=== PATIENT | female | born 1970 | race Caucasian/White ===

== ENCOUNTER → 2016-05-31 | Outpatient (CLI) | payer OTHER ==
[~2016-05-31] MED LIST: IBUP600T26 PO; ISOVUE-370 76% 100ML VIAL (Q9967) As Ordered ONE; LISI5TAB PO; VICO5TAB PO; VITAD1000T PO
--- NOTE | 2016-05-31 18:51 | REP ---
RIGHT ANKLE: HISTORY: Venous insufficiency. Previous ORIF distal tibia. COMPARISON: None. There is a cancellus screw affixing and old healed medial malleolar fracture. Plantar and retrocalcaneal heel spurs are present. There is no evidence of an acute fracture or destructive osseous lesion. IMPRESSION: Chronic changes as described above. Signed by Gerardo Fernandez DO 05/31/2016 07:09 P
--- NOTE | 2016-05-31 18:52 | REP ---
CT ABDOMEN AND PELVIS: REASON FOR EXAM: Venous insufficiency. COMPARISON EXAM: 07/28/2015. CONTRAST UTILIZED: 100 mL Isovue-370. The precontrast enhanced portion of the examination shows hepatic and splenic densities to be within normal limits. There are no nephroliths or choleliths. The lung bases are clear. The post-contrast enhanced portion of the examination shows the liver, gallbladder, spleen, pancreas, adrenal glands, and kidneys to be within normal limits. The abdominal aorta is within normal limits. There are multiple nonenlarged paraaortic lymph nodes of uncertain etiology. Scattered lymph nodes are seen throughout the small bowel mesentery. Some have a borderline short axis size of 1-1.2 cm. When compared to the prior exam some of these appear to have increased in size. There is no free fluid or free air in the abdomen. The bowel loops are within normal limits. CT PELVIS: There are enlarged right inguinal lymph nodes which have increased in size from the prior exam. There is no pelvic side wall adenopathy. The pelvic bowel loops and the mesenteries are within normal limits. Bone window technique through the examination shows the osseous structures to be stable and intact. IMPRESSION: 1. There is mild mesenteric lymphadenopathy of uncertain etiology. This needs to be correlated clinically with appropriate followup. 2. There is right inguinal adenopathy as described above. This appears to have increased from the prior exam and needs to be correlated clinically with appropriate followup. 3. Other findings as described above. Signed by Gerardo Fernandez DO 05/31/2016 07:09 P
== END ==
LOC: M RAD 17:30
PROVIDERS: ATTEND Surgery
DX: I87.2 Venous insufficiency (chronic) (peripheral) (principal); L03.115 Cellulitis of right lower limb; R59.0 Localized enlarged lymph nodes
CPT/HCPCS: 73610; 74178; Q9967

== ENCOUNTER → 2016-06-04 | Outpatient (REF) | payer OTHER ==
[~2016-06-04] MED LIST changes: -ISOVUE-370 76% 100ML VIAL (Q9967) As Ordered ONE
== END ==
LOC: M LAB REF 16:26
PROVIDERS: ATTEND Nurse Practitioner Adult Health
DX: E61.1 Iron deficiency (principal)

== ENCOUNTER → 2016-06-29 | Outpatient (RCR) | payer OTHER | LOC: M PT 06-01 14:09 | PROVIDERS: ATTEND Surgery | DX: Z51.89 Encounter for other specified aftercare (principal); I87.2 Venous insufficiency (chronic) (peripheral); L03.115 Cellulitis of right lower limb ==

== ENCOUNTER 2016-07-11 13:30 | Outpatient (RCR) | payer OTHER | END 2016-07-29 | LOC: M PT 13:30 | PROVIDERS: ATTEND Surgery | DX: Z51.89 Encounter for other specified aftercare (principal); I87.2 Venous insufficiency (chronic) (peripheral); L03.115 Cellulitis of right lower limb ==

== ENCOUNTER → 2016-07-19 | Outpatient (CLI) | payer OTHER ==
--- NOTE | 2016-07-19 12:21 | REP ---
Duplex extremity venous ultrasound: Right lower extremity. History: Question DVT right leg pain. Findings: The deep veins are anechoic and fully compressible from the groin to the popliteal fossa in the right lower extremity. Color flow imaging is homogeneous. Spectral Doppler interrogation demonstrates intact respiratory variation in flow and normal manual augmentation of flow. There is no evidence of deep vein thrombosis. The right groin lymph node is seen measuring 1.6 x 1.0 x 1.4 cm. This has an intact hilar echogenic architecture. Compatible with benign lymph node. Impression: Negative right lower extremity duplex venous ultrasound. No evidence of deep vein thrombosis. Signed by Tk Hare MD 07/19/2016 12:13 P
== END ==
LOC: M RAD 11:39
PROVIDERS: ATTEND Physician Assistant
DX: I82.401 Acute embolism and thrombosis of unspecified deep veins of right lower extremity (principal)

== ENCOUNTER 2016-11-26 13:47 | Outpatient (RCR) | payer OTHER | END 2016-11-29 | LOC: M PT 13:47 | PROVIDERS: ATTEND Surgery | DX: Z51.89 Encounter for other specified aftercare (principal); I87.2 Venous insufficiency (chronic) (peripheral) ==

== ENCOUNTER 2016-12-19 13:00 | Outpatient (RCR) | payer OTHER | END 2016-12-29 | LOC: M PT 13:00 | PROVIDERS: ATTEND Surgery | DX: Z51.89 Encounter for other specified aftercare (principal); R59.0 Localized enlarged lymph nodes ==

== ENCOUNTER 2017-01-28 15:00 | Outpatient (RCR) | payer OTHER | END 2017-01-29 | LOC: M PT 15:00 | PROVIDERS: ATTEND Surgery | DX: Z51.89 Encounter for other specified aftercare (principal) ==

== ENCOUNTER → 2017-05-29 | Outpatient (RCR) | payer OTHER | LOC: M PT 13:11 | DX: Z51.89 Encounter for other specified aftercare (principal); I89.0 Lymphedema, not elsewhere classified ==

== ENCOUNTER 2017-06-17 14:58 | Outpatient (RCR) | payer OTHER | END 2017-06-29 | LOC: M PT 14:58 | DX: Z51.89 Encounter for other specified aftercare (principal); I89.0 Lymphedema, not elsewhere classified ==

== ENCOUNTER 2017-07-01 16:03 | Outpatient (RCR) | payer OTHER | END 2017-07-29 | LOC: M PT 16:03 | DX: Z51.89 Encounter for other specified aftercare (principal); I89.0 Lymphedema, not elsewhere classified ==

== ENCOUNTER → 2017-12-19 | Outpatient (REF) | payer OTHER | LOC: M LAB REF 16:59 | DX: M54.5 Low back pain (principal) ==

== ENCOUNTER → 2018-05-29 | Outpatient (RCR) | payer OTHER, SELFPAY | LOC: M PT 05-20 15:02 | PROVIDERS: ATTEND Surgery | DX: I88.9 Nonspecific lymphadenitis, unspecified (principal) ==

== ENCOUNTER 2018-06-25 13:30 | Outpatient (RCR) | payer OTHER | END 2018-06-29 | LOC: M PT 13:30 | PROVIDERS: ATTEND Surgery | DX: I89.0 Lymphedema, not elsewhere classified (principal) ==

== ENCOUNTER 2018-06-30 16:05 | Outpatient (RCR) | payer OTHER | END 2018-07-29 | LOC: M PT 16:05 | PROVIDERS: ATTEND Surgery | DX: I89.0 Lymphedema, not elsewhere classified (principal) ==

== ENCOUNTER 2018-08-24 20:29 | Emergency (ER) | payer OTHER ==
[~2018-08-24] VITALS: Ht 177.8 cm; Wt 136.4 kg
[2018-08-24] MEDS ORDERED: AMLO5TAB6 PO (20:53)
[2018-08-24] MEDS ORDERED: BISO10TA6 PO (20:53)
[2018-08-24] MEDS ORDERED: FURO20TA2 PO (20:53)
[2018-08-24] MEDS ORDERED: CETI10CA13 PO (20:53)
[2018-08-24] MEDS ORDERED: TRAM50TA2 PO (20:53)
[2018-08-24] MEDS ORDERED: LISI-538 PO (20:53)
[2018-08-24] MEDS ORDERED: ACET1TAB55 PO (20:53)
[2018-08-24 21:49] LABS: BASO % 0.5 % (0.0-1.0); EOS # 0.2 10^3/uL (0.0-0.50); EOS % 2.2 % (0.0-3.0); HEMATOCRIT 35.6 % (36.0-47.0); HEMOGLOBIN 11.7 g/dl (12.0-15.5); LYMPH # 2.6 10^3/uL (1.5-4.5); LYMPH % 32.7 % (24.0-44.0); MEAN CORPUSCULAR HEMOGLOBIN 29.8 pg (27.0-33.0); MEAN CORPUSCULAR HGB CONC 32.9 g/dl (32.0-36.5); MEAN CORPUSCULAR VOLUME 90.8 fl (80.0-96.0); MONO # 0.7 10^3/uL (0.0-0.8); MONO % 8.7 % (0.0-5.0); NEUTROPHILS # 4.5 10^3/uL (1.8-7.7); NEUTROPHILS % 55.5 % (36.0-66.0); PLATELET COUNT, AUTOMATED 237 10^3/uL (150-450); RED BLOOD COUNT 3.92 10^6/uL (4.00-5.40); WHITE BLOOD COUNT 8.1 10^3/uL (4.0-10.0)
[2018-08-24 22:44] VITALS: BP 162/97
== END 2018-08-24 22:45 | disposition home or self-care (01) ==
LOC: M ED 20:29
DX: I83.891 Varicose veins of right lower extremity with other complications (principal); I50.9 Heart failure, unspecified; I10 Essential (primary) hypertension; I89.0 Lymphedema, not elsewhere classified; J30.2 Other seasonal allergic rhinitis; Z79.899 Other long term (current) drug therapy

== ENCOUNTER 2020-02-23 11:46 | Outpatient (RCR) | payer OTHER ==
[~2020-02-23 11:46] MED LIST changes: +ACET1TAB55 PO; +AMLO1TAB24 PO; +BISO10TA14 PO; +CETI10CA13 PO; +FURO20TA2 PO; +LISI-538 PO; +TRAM50TA2 PO
== END 2020-02-29 ==
LOC: M PT 11:46
PROVIDERS: ATTEND Nurse Practitioner Adult Health
DX: M54.5 Low back pain (principal)

== ENCOUNTER 2020-03-29 10:45 | Outpatient (RCR) | payer OTHER | END 2020-03-31 | LOC: M PT 10:45 | PROVIDERS: ATTEND Nurse Practitioner Adult Health | DX: M54.5 Low back pain (principal) ==

== ENCOUNTER 2020-04-20 08:32 | Emergency (ER) | payer OTHER ==
[~2020-04-20] VITALS: Ht 177.8 cm; Wt 163.6 kg
[~2020-04-20 08:32] MED LIST changes: -LISI-538 PO; +LISI20TA33 PO
--- OUTSIDE RECORDS SUMMARY | 2020-04-20 08:39 | CCD | Continuity of Care Document ---
Author Author Elyse Meeks Organization Unknown Address [address] [facility] [address] [place] [address] Phone [phone] Care Team Providers Care Wheel Cleaner Name Role Phone Sunitha Meeks AUTM [phone] Problems Description No Information Available Social History Type Date Description Comments Sex Unknown ETOH Use Denies alcohol use Tobacco Use Start: Unknown Patient has never smoked Allergies, Adverse Reactions, Alerts Active Allergies Reaction Severity Comments Date Bee Sting 07/07/2014 Medications Active Medications SIG Qnty Indications Ordering Provide r Date Torsemide 20mg Tablets 1 by mouth every day 30tabs OTILIA Garnica 03/22/2020 Bariatric Rollator/Extra Wide/400LB [place] city/Heavy Duty Misc use as directed, dispense #1 Dx: M159, 187.2, 189, M54.5 1units Sunitha Meeks, OTILIA 09/08/2019 Bisoprolol Fumarate 10mg Tablets Take One Tablet By Mouth Every Day 90tabs LEX Baker JR 09/02/2018 Acetaminophen Extra Strength 500mg Tablets 2 by mouth three times a day for pain prn ASIM Christianson 09/25/2017 Tramadol HCL 50mg Tablets 1 four times a day as needed 120tabs OTILIA Garnica 05/20/2017 Amlodipine Besylate 5mg Tablets take one tablet by mouth every day 90tabs Sunitha Meeks, OTILIA 0 05/20/2017 Cyclobenzaprine HCL 10mg Tablets take one tablet by mouth three times a day as needed 60tabs OTILIA Hanks 04/29/2017 Vitamin D3 Maximum Strength 5000Unit Capsules every day OTILIA Garnica 017 Azelastine HCL (Nasal) 0.15% Solut ion 1 spray in each nostril daily 30ml J30.9 Sebastián Cheney 05/22/2016 Lisinopril 20mg Tablets take 1 tablet by mouth once a day 90tabs Sunitha Meeks, OTILIA 07/26/2015 Benadryl 25mg Capsules as needed allergies Sunitha Meeks, OTILIA 07/07/2014 Multi For Her 50+ Capsules 1 by mouth every day 30caps Sunitha Meeks, OTILIA 07/07/2014 Immunizations CPT Code Status Date Vaccine Lot # [id number] Refused 01/07/2019 Influenza Vaccin e Quadrivalent Preser/Antibiotic Free Im Use Vital Signs Date Vital Result Comment 03/22/2020 11:17am BP Systolic 156 mmHg BP Diastolic 100 mmHg Heart Rate 75 /min Height 70 inches 5'10" Weight 367.00 lb O2 % BldC Oximetry 99 % BMI (Body Mass Index) 52.7 kg/m2 12/23/2019 10:20am BP Systolic 132 mmHg BP Diastolic 92 mmHg Heart Rate 76 /min Height 70 inches 5'10" Weight 365.00 lb O2 % BldC Oximetry 98 % BMI (Body Mass Index) 52.4 kg/m2 Results Test Acquired Date Facility Test Result H/L Range Note Complete Blood Count 12/23/2019 [facility] Data Analyst Etl Developer: [place] [address] [phone] WBC 6.3 x10*3/UL 4.1 - 10.9 RBC 4.72 x10*6/UL 4.20 - 6.30 Hemoglobin 13.7 g/dL 12.0 - 18.0 Hematocrit 40.4 % 37.0 - 51.0 MCV 85.5 fL 80.0 - 97.0 MCH 29.0 pg 26.0 - 32.0 MCHC 34.0 g/dL 31.0 - 38.0 RDW 13.0 % 11.6 - 13.7 PLT 274 x10*3/UL 140 - 440 MPV 8.2 FL 7.8 - 11.0 Lymph % 27.4 % 10.0 - 58.5 Mid % 7.8 % 1.7 - 9.3 Neut % 64.8 % 37.0 - 92.0 Lymph # 1.7 x10*3/UL 0.6 - 4.1 Mid # 0.5 x10*3/UL 0.1 - 0.6 Neut # 4.1 x10*3/UL 2.0 - 7.8 Comprehensive Chem Profile 12/23/2019 [facility] [place] Data Analyst Etl Developer: Dr Aba Williamson [place], [place] [id number] [phone] Glucose 107 mg/dL High 74 - 99 1 BUN 23 mg/dL High 7 - 18 Creatinine 0.9 mg/dL 0.6 - 1.3 Sodium 138 mEq/L 136 - 145 Potassium 4.3 mEq/L 3.5 - 5.1 Chloride 101 mEq/L 98 - 107 Carbon Dioxide 26 mEq/L 21 - 32 Calcium 9.0 mg/dL 8.5 - 10.1 Alk. Phosphatase 66 mg/dL 46 - 116 Total Bilirubin 0.6 mg/dL 0.2 - 1.0 Ast (Sgot) 33 U/L 15 - 37 Alt (SGPT) 57 U/L 12 - 78 Albumin 3.8 g/dL 3.4 - 5.0 Total Protein 8.1 g/dL 6.4 - 8.2 A/G Ratio 0.88 CALC Low 1.00 - 1.90 GFR >= 60 mL/min >60 GFR >= 60 mL/min >60 2 Lipid Profile 12/23/2019 [facility] [place] Data Analyst Etl Developer: Dr Aba Williamson [place], [place] [id number] [phone] Cholesterol 237 mg/dL High 131 - 200 Triglycerides 164 mg/dL High 30 - 150 HDL Cholesterol 59 mg/dL 35 - 60 LDL (Calculated) 145 CALC 50 - 159 1 100-125 mg/dL PRE-DIABET ES/FASTING >126 mg/dL DIABETES/FASTING 2 CHRONIC KIDNEY DISEASE STAGI NG PER NKF STAGE I & II GFR >= 60 NORMAL TO MILDLY DECREASED STAGE III GFR 30-59 MODERATELY DECREASED STAGE IV GFR 15-29 SEVERELY DECREASED STAGE V GFR <15 VERY LITTLE GFR LEFT ESRD GFR <15 ON BANDSAW OPERATOR Procedures Date Code Description Status 08/26/2014 [id number] Mammogram Completed Medical Devices Description No Information Available Encounters Type Date Location Provider Dx Diagnosis Office Visit 12/23/2019 10:15a [facility], ANP I89.0 Lymphedema, not elsewhere classified M54.5 Low back pain I87.2 Venous insufficiency (chroni c) (peripheral) I10 Essential (primary) hyperten cinthia M15.9 Polyosteoarthritis, unspecif ied E66.01 Morbid (severe) obesity due to excess calories Z68.43 Body mass index (BMI) 50.0-5 9.9, adult Assessments Date Code Description Provider 12/23/2019 I89.0 Lymphedema, not elsewhere classi fied Sunitha Meeks, ANP 12/23/2019 M54.5 Low back pain Sunitha Meeks, ANP 12/23/2019 I87.2 Venous insufficiency (chronic) ( peripheral) Sunitha Meeks, OTILIA 12/23/2019 I10 Essential (primary) hypertension Sunitha Meeks, ANP 12/23/2019 M15.9 Polyosteoarthritis, unspecified Sunitha Meeks, OTILIA 12/23/2019 E66.01 Morbid (severe) obesity due to e xcess calories Sunitha Meeks, OTILIA 12/23/2019 Z68.43 Body mass index (BMI) 50.0-59.9, adult Sunitha Meeks, OTILIA Plan of Treatment 12/23/2019 - Sunitha Meeks, OTILIA* I89.0 Lymphedema, not elsewhere classified * M54.5 Low back pain * I87.2 Venous insufficiency (chronic) (peripheral) * I10 Essential (primary) hypertension * M15.9 Polyosteoarthritis, unspecified * E66.01 Morbid (severe) obesity due to excess calories * Z68.43 Body mass index (BMI) 50.0-59.9, adult * All * Comments:* I've give her a note to be out of work for state disability. She's going to meet with her real estate lawyer for permanent Social Security Disability, which I think is very appropriate. Functional Status Description No Information Available Mental Status Description No Information Available Referrals Description No Information Available
--- OUTSIDE RECORDS SUMMARY | 2020-04-20 08:39 | CCD ---
Continuity of Care Document (CCD) Created on: 03/29/2020 Elyse Nguyen External Reference #: [id number] : [id number] Sex: Female Author Author Elyse Meeks Organization Unknown Address [address] [facility] [address] [place] [address] Phone [phone] Care Team Providers Care Technical Sales Support Specialist Name Role Phone Sunitha Meesk ANP AUTM [phone] [facility] Physical Thera AUTM [phone] Problems Description No Information Available Social History Type Date Description Comments Sex Unknown ETOH Use Denies alcohol use Tobacco Use Start: Unknown Patient has never smoked Allergies, Adverse Reactions, Alerts Active Allergies Reaction Severity Comments Date Bee Sting 07/07/2014 Medications Active Medications SIG Qnty Indications Ordering Provide r Date Torsemide 20mg Tablets 1 by mouth every day 30tabs Sunitha Meeks, OTILIA 03/22/2020 [facility]ric Roll[facility]Extra Wide/400[facility] Misc use as directed, dispense [...] CPT Code Status Date Vaccine Lot # [id number] Refused 01/07/2019 Influenza Vaccin e Quadrivalent Preser/Antibiotic [...] H/L Range Note Complete Blood Count 12/23/2019 [facility] Air Traffic Systems Technician: [place] [address] [phone] WBC 6.3 x10*3/UL 4.1 - 10.9 RBC [...] 2.0 - 7.8 Comprehensive Chem Profile 12/23/2019 [facility] Air Traffic Systems Technician: Dr Aba Williamson [place], [place] [id number] [phone] Glucose 107 mg/dL High 74 - 99 [...] 60 mL/min >60 2 Lipid Profile 12/23/2019 [facility] , Air Traffic Systems Technician: Dr Aba Williamson [place], [place] [id number] [phone] Cholesterol 237 mg/dL High 131 - 200 [...] LITTLE GFR LEFT ESRD GFR <15 ON DEMAND PLANNER Procedures Date Code Description Status 08/26/2014 [id number] Mammogram Completed Medical Devices Description No Information Available Encounters Type Date Location Provider Dx Diagnosis Office Visit 03/22/2020 11:00a [facility] Sunitha Meeks, ANP I89.0 Lymphedema, not elsewhere classified M54.5 Low back pain I87.2 Venous insufficiency (chroni c) (peripheral) I10 Essential (primary) hyperten cinthia M15.9 Polyosteoarthritis, unspecif ied E66.01 Morbid (severe) obesity due to excess calories Z68.43 Body mass index [BMI] 50.0-5 9.9, adult Office Visit 12/23/2019 10:15a [facility] Sunitha Meeks, ANP I89.0 Lymphedema, not elsewhere classified M54.5 Low back pain I87.2 Venous insufficiency (chroni c) (peripheral) I10 Essential (primary) hyperten cinthia M15.9 Polyosteoarthritis, unspecif ied E66.01 Morbid (severe) obesity due to excess calories Z68.43 Body mass index (BMI) 50.0-5 9.9, adult Assessments Date Code Description Provider 03/22/2020 I89.0 Lymphedema, not elsewhere classi fied Sunitha Meeks, ANP 03/22/2020 M54.5 Low back pain Sunitha Meeks, ANP 03/22/2020 I87.2 Venous insufficiency (chronic) ( peripheral) Sunitha Meeks, ANP 03/22/2020 I10 Essential (primary) hypertension Sunitha Meeks, ANP 03/22/2020 M15.9 Polyosteoarthritis, unspecified Sunitha Meeks, ANP 03/22/2020 E66.01 Morbid (severe) obesity due to e xcess calories Sunitha Meeks, ANP 03/22/2020 Z68.43 Body mass index [BMI] 50.0-59.9, adult Sunitha Meeks, ANP 12/23/2019 I89.0 Lymphedema, not elsewhere classi fied Sunitha Meeks, ANP 12/23/2019 M54.5 Low back pain Sunitha Meeks, ANP 12/23/2019 I87.2 Venous insufficiency (chronic) ( peripheral) Sunitha Meeks, ANP 12/23/2019 I10 Essential (primary) hypertension Sunitha Meeks, ANP 12/23/2019 M15.9 Polyosteoarthritis, unspecified Suntiha Meeks, OTILIA 12/23/2019 E66.01 Morbid (severe) obesity due to e xcess calories OTILIA Garnica 12/23/2019 Z68.43 Body mass index (BMI) 50.0-59.9, adult OTILIA Garnica Plan of Treatment Future Appointment(s):* 04/19/2020 10:40 am - OTILIA Garnica at [facility] 03/22/2020 - OTILIA Garnica* I89.0 Lymphedema, not elsewhere classified * M54.5 Low back pain * I87.2 Venous insufficiency (chronic) (peripheral) * I10 Essential (primary) hypertension * M15.9 Polyosteoarthritis, unspecified * E66.01 Morbid (severe) obesity due to excess calories * Z68.43 Body mass index [BMI] 50.0-59.9, adult * All * New Medication:* Torsemide 20 mg - 1 by mouth every day Functional Status Description No Information Available Mental Status Description No Information Available Referrals Description No Information Available
--- OUTSIDE RECORDS SUMMARY | 2020-04-20 08:40 | CCD ---
Author Author [facility] Organization [facility] Address Unknown Phone Unavailable Care Team Providers Care Solar Sales Advisor Name Role Phone Ger, Susan STRATEGIC INTELLIGENCE OFFICER Unavailable Unavailable Ger, Susan STRATEGIC INTELLIGENCE OFFICER Unavailable Unavailable Ger, Susan STRATEGIC INTELLIGENCE OFFICER Unavailable Unavailable Ger, Susan STRATEGIC INTELLIGENCE OFFICER Unavailable Unavailable Ger, Susan STRATEGIC INTELLIGENCE OFFICER Unavailable Unavailable Ger, Susan STRATEGIC INTELLIGENCE OFFICER Unavailable Unavailable Ger, Susan STRATEGIC INTELLIGENCE OFFICER Unavailable Unavailable Ger, Susan STRATEGIC INTELLIGENCE OFFICER Unavailable Unavailable Ger, Susan STRATEGIC INTELLIGENCE OFFICER Unavailable Unavailable Ger, Susan STRATEGIC INTELLIGENCE OFFICER Unavailable Unavailable Ger, Susan STRATEGIC INTELLIGENCE OFFICER Unavailable Unavailable Ger, Susan STRATEGIC INTELLIGENCE OFFICER Unavailable Unavailable Ger, Susan STRATEGIC INTELLIGENCE OFFICER Unavailable Unavailable Ger, Susan STRATEGIC INTELLIGENCE OFFICER Unavailable Unavailable Ger, Susan STRATEGIC INTELLIGENCE OFFICER Unavailable Unavailable Ger, Susan STRATEGIC INTELLIGENCE OFFICER Unavailable Unavailable Ger, Susan STRATEGIC INTELLIGENCE OFFICER Unavailable Unavailable Ger, Susan STRATEGIC INTELLIGENCE OFFICER Unavailable Unavailable Ger, Susan STRATEGIC INTELLIGENCE OFFICER Unavailable Unavailable Ger, Susan STRATEGIC INTELLIGENCE OFFICER Unavailable Unavailable Ger, Susan STRATEGIC INTELLIGENCE OFFICER Unavailable Unavailable Ger, Susan STRATEGIC INTELLIGENCE OFFICER Unavailable Unavailable Ger, Susan STRATEGIC INTELLIGENCE OFFICER Unavailable Unavailable Ger, Susan STRATEGIC INTELLIGENCE OFFICER Unavailable Unavailable Ger, Susan STRATEGIC INTELLIGENCE OFFICER Unavailable Unavailable Ger, Susan STRATEGIC INTELLIGENCE OFFICER Unavailable Unavailable Ger, Susan STRATEGIC INTELLIGENCE OFFICER Unavailable Unavailable Ant BAUER MD Unavailable Unavailable Ant BAUER MD Unavailable Unavailable Ant BAUER MD Unavailable Unavailable Ant BAUER MD Unavailable Unavailable Ant BAUER MD Unavailable Unavailable Ant BAUER MD Unavailable Unavailable Ant BAUER MD Unavailable Unavailable Ant BAUER MD Unavailable Unavailable Ant BAUER MD Unavailable Unavailable Ant BAUER MD Unavailable Unavailable Ant BAUER MD Unavailable Unavailable Ant BAUER MD Unavailable Unavailable Ant BAUER MD Unavailable Unavailable Ant BAUER MD Unavailable Unavailable Ant BAUER MD Unavailable Unavailable Ant BAUER MD Unavailable Unavailable Ant BAUER MD Unavailable Unavailable Ant BAUER MD Unavailable Unavailable Ant BAUER MD Unavailable Unavailable Ant BAUER MD Unavailable Unavailable Ant BAUER MD Unavailable Unavailable Ant BAUER MD Unavailable Unavailable Ant BAUER MD Unavailable Unavailable Ant BAUER MD Unavailable Unavailable Ant BAUER MD Unavailable Unavailable Ant BAUER MD Unavailable Unavailable Ant BAUER MD Unavailable Unavailable Ant BAUER MD Unavailable Unavailable Ant BAUER MD Unavailable Unavailable Ant BAUER MD Unavailable Unavailable Ant BAUER MD Unavailable Unavailable Ant BAUER MD Unavailable Unavailable Ant BAUER MD Unavailable Unavailable Ant BAUER MD Unavailable Unavailable Ant BAUER MD Unavailable Unavailable Ant BAUER MD Unavailable Unavailable Ant BAUER MD Unavailable Unavailable Ant BAUER MD Unavailable Unavailable Ant BAUER MD Unavailable Unavailable Ant BAUER MD Unavailable Unavailable Ant BAUER MD Unavailable Unavailable Ant BAUER MD Unavailable Unavailable Ant BAUER MD Unavailable Unavailable Ant BAUER MD Unavailable Unavailable Ant BAUER MD Unavailable Unavailable Ant BAUER MD Unavailable Unavailable Ant BAUER MD Unavailable Unavailable Ant BAUER MD Unavailable Unavailable Ant BAUER MD Unavailable Unavailable Ant BAUER MD Unavailable Unavailable Ant BAUER MD Unavailable Unavailable Ant BAUER MD Unavailable Unavailable Ant BAUER MD Unavailable Unavailable Ant BAUER MD Unavailable Unavailable Ant BAUER MD Unavailable Unavailable Ant BAUER MD Unavailable Unavailable Ant BAUER MD Unavailable Unavailable Ant BAUER MD Unavailable Unavailable Ant BAUER MD Unavailable Unavailable Ant BAUER MD Unavailable Unavailable Ant BAUER MD Unavailable Unavailable Ant BAUER MD Unavailable Unavailable Ant BAUER MD Unavailable Unavailable Ant BAUER MD Unavailable Unavailable Ant BAUER MD Unavailable Unavailable Ant BAUER MD Unavailable Unavailable Ant BAUER MD Unavailable Unavailable Ant BAUER MD Unavailable Unavailable Ant BAUER MD Unavailable Unavailable Ant BAUER MD Unavailable Unavailable Ant BAUER MD Unavailable Unavailable Ant BAUER MD Unavailable Unavailable Ant BAUER MD Unavailable Unavailable Ant BAUER MD Unavailable Unavailable Ant BAUER MD Unavailable Unavailable Ant BAUER MD Unavailable Unavailable Ant BAUER MD Unavailable Unavailable Ant BAUER MD Unavailable Unavailable Ant BAUER MD Unavailable Unavailable Ant BAUER MD Unavailable Unavailable Ant BAUER MD Unavailable Unavailable Ant BAUER MD Unavailable Unavailable Ant BAUER MD Unavailable Unavailable Ant BAUER MD Unavailable Unavailable Ant BAUER MD Unavailable Unavailable Ant BAUER MD Unavailable Unavailable Ant BAUER MD Unavailable Unavailable Ant BAUER MD Unavailable Unavailable Ant BAUER MD Unavailable Unavailable Ant BAUER MD Unavailable Unavailable Ant BAUER MD Unavailable Unavailable Ant BAUER MD Unavailable Unavailable Ant BAUER MD Unavailable Unavailable Ant BAUER MD Unavailable Unavailable Ant BAUER MD Unavailable Unavailable Ant BAUER MD Unavailable Unavailable Ant BAUER MD Unavailable Unavailable Ant BAUER MD Unavailable Unavailable Ant BAUER MD Unavailable Unavailable Ant BAUER MD Unavailable Unavailable Ant BAUER MD Unavailable Unavailable Ant BAUER MD Unavailable Unavailable Ant BAUER MD Unavailable Unavailable Ant BAUER MD Unavailable Unavailable Ant BAUER MD Unavailable Unavailable Ant BAUER MD Unavailable Unavailable Ant BAUER MD Unavailable Unavailable Ant BAUER MD Unavailable Unavailable Ant BAUER MD Unavailable Unavailable Ant BAUER MD Unavailable Unavailable Ant BAUER MD Unavailable Unavailable Ant BAUER MD Unavailable Unavailable Ant BAUER MD Unavailable Unavailable nAt BAUER MD Unavailable Unavailable Ant BAUER MD Unavailable Unavailable Ant BAUER MD Unavailable Unavailable Ant BAUER MD Unavailable Unavailable Ant BAUER MD Unavailable Unavailable Ant BAUER MD Unavailable Unavailable Ant BAUER MD Unavailable Unavailable Ant BAUER MD Unavailable Unavailable Ant BAUER MD Unavailable Unavailable Ant BAUER MD Unavailable Unavailable Ant BAUER MD Unavailable Unavailable Ant BAUER MD Unavailable Unavailable Ant BAUER MD Unavailable Unavailable Ant BAUER MD Unavailable Unavailable Ant BAUER MD Unavailable Unavailable BRODY, J Sunitha ANP Unavailable Unavailable BRODY, J Sunitha ANP Unavailable Unavailable BRODY, J Sunitha ANP Unavailable Unavailable BRODY, J Sunitha ANP Unavailable Unavailable BRODY, J Sunitha ANP Unavailable Unavailable BRODY, J Sunitha ANP Unavailable Unavailable BRODY, J Sunitha ANP Unavailable Unavailable BRODY, J Sunitha ANP Unavailable Unavailable BRODY, J Sunitha ANP Unavailable Unavailable BRODY, J Sunitha ANP Unavailable Unavailable BRODY, J Sunitha ANP Unavailable Unavailable BRODY, J Sunitha ANP Unavailable Unavailable BRODY, J Sunitha ANP Unavailable Unavailable BRODY, J Snuitha ANP Unavailable Unavailable BRODY, J Sunitha ANP Unavailable Unavailable BRODY, J Sunitha ANP Unavailable Unavailable BRODY, J Sunitha ANP Unavailable Unavailable BRODY, J Sunitha ANP Unavailable Unavailable BRODY, J Sunitha ANP Unavailable Unavailable BRODY, J Sunitha ANP Unavailable Unavailable BRODY, J Sunitha ANP Unavailable Unavailable BRODY, J Sunitha ANP Unavailable Unavailable BRODY, J Sunitha ANP Unavailable Unavailable BRODY, J Sunitha ANP Unavailable Unavailable BRODY, J Sunitha ANP Unavailable Unavailable BRODY, J Sunitha ANP Unavailable Unavailable BRODY, J Sunitha ANP Unavailable Unavailable BRODY, J Sunitha ANP Unavailable Unavailable BRODY, J Sunitha ANP Unavailable Unavailable BRODY, J Sunitha ANP Unavailable Unavailable BRODY, J Sunitha ANP Unavailable Unavailable BRODY, J Sunitha ANP Unavailable Unavailable BRODY, J Sunitha ANP Unavailable Unavailable BRODY, J Sunitha ANP Unavailable Unavailable BRODY, J Sunitha ANP Unavailable Unavailable BRODY, J Sunitha ANP Unavailable Unavailable BRODY, J Sunitha ANP Unavailable Unavailable BRODY, J Sunitha ANP Unavailable Unavailable BRODY, J Sunitha ANP Unavailable Unavailable BRODY, J Sunitha ANP Unavailable Unavailable BRODY, J Sunitha ANP Unavailable Unavailable BRODY, J Sunitha ANP Unavailable Unavailable BRODY, J Sunitha ANP Unavailable Unavailable BRODY, J Sunitha ANP Unavailable Unavailable BRODY, J Sunitha ANP Unavailable Unavailable BRODY, J Sunitha ANP Unavailable Unavailable BRODY, J Sunitha ANP Unavailable Unavailable BRODY, J Sunitha ANP Unavailable Unavailable BRODY, J Sunitha ANP Unavailable Unavailable BRODY, J Sunitha ANP Unavailable Unavailable BRODY, J Sunitha ANP Unavailable Unavailable BRODY, J Sunitha ANP Unavailable Unavailable BRODY, J Sunitha ANP Unavailable Unavailable BRODY, J Sunitha ANP Unavailable Unavailable BRODY, J Sunitha ANP Unavailable Unavailable BRODY, J Sunitha ANP Unavailable Unavailable BRODY, J Sunitha ANP Unavailable Unavailable BRODY, J Sunitha ANP Unavailable Unavailable BRODY, J Sunitha ANP Unavailable Unavailable BRODY, J Sunitha ANP Unavailable Unavailable BRODY, J Sunitha ANP Unavailable Unavailable BRODY, J Sunitha ANP Unavailable Unavailable BRODY, J Sunitha ANP Unavailable Unavailable BRODY, J Sunitha ANP Unavailable Unavailable BRODY, J Sunitha ANP Unavailable Unavailable BRODY, J Sunitha ANP Unavailable Unavailable Re-disclosure Warning The records that you are about to access may contain information from federally-assisted alcohol or drug abuse programs. If such information is present, then the following federally mandated warning applies: This information has been disclosed to you from records protected by federal confidentiality rules (42 CFR part 2). The federal rules prohibit you from making any further disclosure of this information unless further disclosure is expressly permitted by the written consent of the person to whom it pertains or as otherwise permitted by 42 CFR part 2. A general authorization for the release of medical or other information is NOT sufficient for this purpose. The Federal rules restrict any use of the information to criminally investigate or prosecute any alcohol or drug abuse patient.The records that you are about to access may contain highly sensitive health information, the redisclosure of which is protected by Article 27-F of the [facility] Public Health law. If you continue you may have access to information: Regarding HIV / AIDS; Provided by facilities licensed or operated by the [facility] Office of Mental Health; or Provided by the [facility] Office for People With Developmental Disabilities. If such information is present, then the following [facility] mandated warning applies: This information has been disclosed to you from confidential records which are protected by state law. State law prohibits you from making any further disclosure of this information without the specific written consent of the person to whom it pertains, or as otherwise permitted by law. Any unauthorized further disclosure in violation of state law may result in a fine or group home sentence or both. A general authorization for the release of medical or other information is NOT sufficient authorization for further disc losure. Family History Family Member Name Family Member Gender Family Member Status Date o f Status Description Data Source(s) Unknown Male Problem [facility] ([facility] ) Unknown Female Problem [facility] ([facility]) Unknown Unknown Problem [facility] father Encounters Encounter Providers Location Date Indications Data Source(s ) Outpatient Attender: Sunitha Russell 10:00:00 AM EST [facility] ([facility] ) Outpatient Attender: Sunitha Russell 10:15:00 AM EDT [facility] ([facility] ) Outpatient Attender: LENNY BAUER MD 12/22/2019 11:39: 00 AM [facility] Outpatient Attender: LENNY BAUER MD 10/20/2019 12:00: 00 AM [facility] Outpatient Attender: Susan Russell 03:20:00 PM EDT [facility] ([facility] ) Outpatient Attender: Susan Russell 07:40:00 AM EST [facility] ([facility] ) Medications Medication Brand Name Start Date Product Form Dose Route Admi nistrative Instructions Pharmacy Instructions Status Indications Reaction Description Data Source(s) torsemide 20 MG Oral Tablet Torsemide 03/22/2020 12:00:00 AM EST ORAL active [facility] ([facility]) 300 mg 02/23/2020 12:00:00 AM EST capsule 20 TAKE ONE CAPSULE BY MOUTH TWICE A DAY FOR 10 DAYS TAKE ONE CAPSULE BY MOUTH TWICE A DAY FOR 10 DAYS SOLD : 02/23/2020 [facility] Bariatric Rollator/Extra Wide/400LB Capacity/Heavy Duty 09/08/2019 12:00:00 AM EDT active [facility] ([facility]) Amoxicillin 500 MG / Clavulanate 125 MG Oral Tablet [Augment in] Augmentin 07/27/2019 12:00:00 AM EDT ORAL completed [facility] ([facility]) 875-125 mg 06/05/2019 12:00:00 AM EST tablet 20 TAKE ONE TABLET BY MOUTH TWICE A DAY FOR 10 DAYS TAKE ONE TABLET BY MOUTH TWICE A DAY FOR 10 DAYS SOLD: 06/05/2019 [facility] Oseltamivir 75 MG Oral Capsule [Tamiflu] Tamiflu 06/03/2019 12:00: 00 AM EST completed [facility] ([facility]) Amoxicillin 500 MG / Clavulanate 125 MG Oral Tablet [Augment in] Augmentin 04/14/2019 12:00:00 AM EST completed [facility] ([facility]) Insurance Providers Payer name Policy type / Coverage type Policy ID Covered alliance party ID Covered alliance party's relationship to doe Policy Doe Plan Information [employer] [id number] SP U [id number] CIGNA/MVP/CONN GEN/PREFE O [id number] P [id number] AETNA [place] O [id number] P [id number] [employer]NA HEALTHCARE [id number] SP U [id number] CIG[employer] HE[employer]CARE [id number] S [id number] Workers Compensation Workers Compensation [id number] Self [id number] Aetna Commercial [id number] Family Dependent [id number] [employer] Commercial [id number] Self [id number] AETNA U [id number] Spouse [id number] AETNA U [id number] Self [id number] AETNA U [id number] Self [id number] [employer] [place] [id number] Workers Compensation Workers Compensation [id number] Self [id number] Workers Compensation Workers Compensation [id number] Self [id number] Medigap Part B [id number] Family Depend ent [id number] Aetna (pr) Commercial [id number] Self [id number] AETNA [facility] [place] [id number] SP [id number] SELF PAY ONLY [id number] SP [id number] AETNA [facility] [place] [id number] [facility] [id number] Workers Compensation Workers Compensation [id number] Self [id number] Workers Compensation Workers Compensation [id number] Self [id number] A[employer]na Commercial [id number] Family Dependent [id number] Workers Compensation Workers Compensation [id number] Self [id number] Workers Compensation Workers Compensation [id number] Self [id number] Workers Compensation Workers Compensation [id number] Self [id number] AETNA [facility] [place] [id number] [facility] [id number] Workers Compensation Workers Compensation [id number] Self [id number] Workers Compensation Workers Compensation [id number] Self [id number] Aetna Ppo/Pos/Nap/MC Commercial [id number] Family Dependen t [id number] Workers Compensation Workers Compensation [id number] Self [id number] Workers Compensation Workers Compensation [id number] Self [id number] [employer] [place] [id number] HU2 [id number] Workers Compensation Workers Compensation [id number] Self [id number] Aetna Ppo/Pos/Nap/MC Commercial [id number] Family Dependen t [id number] [employer] [place] [id number] HU2 [id number] Aetna Ppo/Pos/Nap/MC Commercial [id number] Family Dependen t [id number] [employer] [place] [place] [id number] HU2 [id number] Workers Compensation Workers Compensation [id number] Self [id number] Workers Compensation Workers Compensation [id number] Self [id number] AETNA [facility] [place] [id number] Workers Compensation Workers Compensation [id number] Self [id number] Aetna Commercial [id number] Family Dependent [id number] Workers Compensation Workers Compensation Self Aetna Commercial [id number] Family Dependent [id number] [employer] [place] [place] O [id number] P [id number] Workers Compensation Workers Compensation Self Workers Compensation Workers Compensation Self AETNA [id number] Spo [id number] Workers Compensation Workers Compensation Self Workers Compensation Workers Compensation Self Aetna Ppo/Pos/Nap/MC Commercial Family Dependent Workers Compensation Workers Compensation Self Workers Compensation Workers Compensation Self AETNA (HMO/PPO/POS/GPPO - MANAGED CARE [id number] AETNA (HMO/PPO/POS/GPPO - MANAGED CARE [id number] 1 [id number] [facility] 010/[id number] Problems, Conditions, and Diagnoses Code Display Name Description Problem Type Effective Dates Data Source(s) I87.2 Venous insufficiency (chronic) (peripher al) VENOUS INSUFFICIENCY (CHRONIC) (PERIPHERAL) Diagnosis 12/22/2019 11:39:00 AM [facility] I83.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 VARICOSE VEINS OF BI LOW EXTREM W OTH COMPLICATIONS Diagnosis 11:39:00 AM [facility] Results ID Date Data Source [id number] 03/22/2020 12:00:00 AM EST [facility]y Imaging Sunitha Munguia, Rnakilah Patient Name:WALE [id number] [facility] Date of : 1970 89 Date of Exam: 03/22/2020CARRIE Valente [id number]#: Fax: [phone] EXAM: HIP RIGHT UNILATERAL (COMPLETE) X-RAYCLINICAL INFORMATION: Pain.Two views.There are no prior right hip xrays for comparison.There is slight hip joint space narrowing, There is no buttressing,fracture, dislocation, or subluxation. There is no evidence of marginalosteophytosis.IMPRESSION:Minimal degenerative changes.SARTHAK Mcclellan/Maritza you for referring WALE GARY to our office. Electronically Signed - JESSICA OSPINA DO 03/28/20 16:40 Name Value Range Interpretation Code Description Data Shelia rce(s) Supporting Document(s) ID Date Data Source [id number] 03/22/2020 12:00:00 AM EST [facility] Imaging Sunitha Munguia, Rnakilah Patient Name:WALE [id number] [facility] Date of : 1970 89 Date of Exam: 03/22/2020CARRIE Valente [id number]#: Fax: [phone] EXAM: HIP LEFT UNILATERAL (COMPLETE) X-RAYCLINICAL INFORMATION: Pain.Two views.There are no prior left hip xrays for comparison.There is luxx-uu-ilfrimck asymmetric hip joint space narrowing withoutevidence of prominent marginal osteophytosis or buttressing. There is nofracture, dislocation, or subluxation.IMPRESSION:Chronic changes as described above.SARTHAK Mcclellan/Maritza you for referring WALE GARY to our office. Electronically Signed - JESSICA OSPIAN DO 03/28/20 16:40 Name Value Range Interpretation Code Description Data Shelia rce(s) Supporting Document(s) ID Date Data Source [id number] 12/23/2019 11:07:00 AM EDT [facility] ([facility]) Name Value Range Interpretation Code Description Data Shelia rce(s) Supporting Document(s) Triglyceride [Mass/volume] in Serum or Plasma 164 mg/dL 30-150 [facility] ([facility]) Cholesterol [Mass/volume] in Serum or Plasma 237 mg/dL 131-200 [facility] ([facility]) Cholesterol in HDL [Mass/volume] in Serum or Plasma 59 mg/dL 35-60 [facility] ([facility]) Cholesterol in LDL [Mass/volume] in Serum or Plasma by calcu lation 145 CALC 50-159 [facility] ([facility]) ID Date Data Source [id number] 12/23/2019 11:07:00 AM EDT [facility] ([facility]) Name Value Range Interpretation Code Description Data Shelia rce(s) Supporting Document(s) Urea nitrogen [Mass/volume] in Serum or Plasma 23 mg/dL 7-18 [facility] ([facility]) Glucose [Mass/volume] in Serum or Plasma 107 mg/dL 74-99 [facility] ([facility]) 100-125 mg/dL PRE-DIABETES/FASTING >126 mg/dL DIABETES/FASTING Creatinine 0.9 mg/dL 0.6-1.3 [facility] ([facility]) Sodium [Moles/volume] in Serum or Plasma 138 meq/L 136-145 [facility] ([facility]) Potassium [Moles/volume] in Serum or Plasma 4.3 meq/L 3.5-5.1 [facility] ([facility]) Carbon dioxide, total [Moles/volume] in Serum or Plasma 26 meq/L 21 -32 [facility] ([facility]) Chloride [Moles/volume] in Serum or Plasma 101 meq/L 98-107 [facility] ([facility]) Calcium [Mass/volume] in Serum or Plasma 9.0 mg/dL 8.5-10.1 [facility] ([facility]) Total Bilirubin 0.6 mg/dL 0.2-1.0 [facility] ([facility]) Alkaline phosphatase isoenzyme [Units/volume] in Serum or Pl asma 66 mg/dL 46-116 [facility] ([facility]) Aspartate aminotransferase [Enzymatic activity/volume] in Serum or Plasma 33 U/L 15-37 [facility] ([facility] ) Alanine aminotransferase [Enzymatic activity/volume] in Seru m or Plasma 57 U/L 12-78 [facility] Albumin [Mass/volume] in Serum or Plasma 3.8 g/dL 3.4-5.0 [facility] ([facility]) A/G Ratio 0.88 CALC 1.00-1.90 [facility] [facility] Proteinase 3 Ab [Units/volume] in Serum 8.1 g/dL 6.4-8.2 [facility] Glomerular filtration rate/1.73 sq M pre dicted among blacks [Volume Rate/Area] in Serum or Plasma by Creatinine-based formula (MDRD) Laboratory test result [facility] ([facility]) <content>CHRONIC KIDNEY DISEASE STAGING PER NKF</content>
<content></content>
<content>STAGE I & II GFR >= 60 NORMAL TO MILDLY DECREASED</content>
<content>STAGE III GFR 30-59 MODERATELY DECREASED</content>
<content>STAGE IV GFR 15-29 SEVERELY DECREASED</content>
<content>STAGE V GFR <15 VERY LITTLE GFR LEFT</content>
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
<content></content> Glomerular filtration rate/1.73 sq M pre dicted among non-blacks [Volume Rate/Area] in Serum or Plasma by Creatinine-based formula (MDRD) Laboratory test result [facility] ([facility] ) ID Date Data Source [id number] 12/23/2019 11:07:00 AM EDT [facility] Name Value Range Interpretation Code Description Data Shelia rce(s) Supporting Document(s) Leukocytes [#/volume] in Blood by Automated count 6.3 x10*3/UL 4.1-10 .9 [facility] ([facility]) Hemoglobin [Mass/volume] in Blood 13.7 g/dL 12.0-18.0 [facility] ([facility]) Erythrocytes [#/volume] in Blood by Automated count 4.72 x10*6/UL 4.2 0-6.30 [facility] ([facility]) MCV 85.5 fL 80.0-97.0 [facility] ([facility]) Hematocrit [Volume Fraction] of Blood by Automated count 40.4 % 3 7.0-51.0 [facility] ([facility]) MCH 29.0 pg 26.0-32.0 [facility] ([facility]) MCHC 34.0 g/dL 31.0-38.0 [facility] ([facility]) Platelets [#/volume] in Blood by Automated count 274 x10*3/UL 140-440 [facility] ([facility]) Erythrocyte distribution width [Ratio] by Automated count 13.0 % 11.6-13.7 [facility] ([facility]) Mid % 7.8 % 1.7-9.3 [facility] ([facility]) MPV 8.2 FL 7.8-11.0 [facility] ([facility]) Lymph % 27.4 % 10.0-58.5 [facility] ([facility]) Lymph # 1.7 x10*3/UL 0.6-4.1 [facility] ([facility]) Neut % 64.8 % 37.0-92.0 [facility] ([facility]) Neut # 4.1 x10*3/UL 2.0-7.8 [facility] ([facility]) Mid # 0.5 x10*3/UL 0.1-0.6 [facility] ([facility]) ID Date Data Source [id number] 09/08/2019 03:44:00 PM EDT [facility] ([facility]) Name Value Range Interpretation Code Description Data Shelia rce(s) Supporting Document(s) Glucose [Mass/volume] in Serum or Plasma 127 mg/dL 74-99 [facility] ([facility]) 100-125 mg/dL PRE-DIABETES/FASTING >126 mg/dL DIABETES/FASTING Creatinine 1.1 mg/dL 0.6-1.3 [facility] ([facility]) Urea nitrogen [Mass/volume] in Serum or Plasma 15 mg/dL 7-18 [facility] ([facility]) Sodium [Moles/volume] in Serum or Plasma 143 meq/L 136-145 [facility] ([facility]) Potassium [Moles/volume] in Serum or Plasma 3.8 meq/L 3.5-5.1 [facility] ([facility]) Calcium [Mass/volume] in Serum or Plasma 8.7 mg/dL 8.5-10.1 [facility] ([facility]) Chloride [Moles/volume] in Serum or Plasma 105 meq/L 98-107 [facility] Carbon dioxide, total [Moles/volume] in Serum or Plasma 29 meq/L 21 -32 [facility] Glomerular filtration rate/1.73 sq M pre dicted among non-blacks [Volume Rate/Area] in Serum or Plasma by Creatinine-based formula (MDRD) 52 mL/min [facility] ([facility]) Glomerular filtration rate/1.73 sq M pre dicted among blacks [Volume Rate/Area] in Serum or Plasma by Creatinine-based formula (MDRD) Laboratory test result [facility] ([facility]) <content>CHRONIC KIDNEY DISEASE STAGING PER NKF</content>
<content></content>
<content>STAGE I & II GFR >= 60 NORMAL TO MILDLY DECREASED</content>
<content>STAGE III GFR 30-59 MODERATELY DECREASED</content>
<content>STAGE IV GFR 15-29 SEVERELY DECREASED</content>
<content>STAGE V GFR <15 VERY LITTLE GFR LEFT</content>
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
<content></content> Procedure Vital Signs ID Date Data Source UNK Name Value Range Interpretation Code Description Data Source(s) Body mass index (BMI) [Ratio] 52.7 kg/m2 52.7 k g/m2 [facility] ([facility]) Oxygen saturation in Arterial blood by Pulse oximetry 99 % 99 % [facility] ([facility]) Body weight 367.00 [lb_av] 367.00 [lb_av] [facility] ([facility]) Body height 70 [in_i] 70 [in_i] [facility] ([facility]) 5'10" Heart rate 75 /min 75 /min [facility] ([facility]) Diastolic blood pressure 100 mm[Hg] 100 mm[Hg] [facility] ([facility]) Systolic blood pressure 156 mm[Hg] 156 mm[Hg] [facility] ([facility]) Body mass index (BMI) [Ratio] 52.4 kg/m2 52.4 k g/m2 [facility] ([facility]) Oxygen saturation in Arterial blood by Pulse oximetry 98 % 98 % [facility] ([facility]) Body weight 365.00 [lb_av] 365.00 [lb_av] [facility] ([facility]) Body height 70 [in_i] 70 [in_i] [facility] ([facility]) 5'10" Heart rate 76 /min 76 /min [facility] ([facility]) Diastolic blood pressure 92 mm[Hg] 92 mm[Hg] [facility] ([facility]) Systolic blood pressure 132 mm[Hg] 132 mm[Hg] [facility] ([facility]) Body mass index (BMI) [Ratio] 53.7 kg/m2 53.7 k g/m2 [facility] ([facility]) Body weight 374.00 [lb_av] 374.00 [lb_av] [facility] Body height 70 [in_i] 70 [in_i] [facility] ([facility]) 5'10" Heart rate 78 /min 78 /min [facility] ([facility]) Diastolic blood pressure 84 mm[Hg] 84 mm[Hg] [facility] ([facility]) Systolic blood pressure 130 mm[Hg] 130 mm[Hg] [facility] ([facility]) Body mass index (BMI) [Ratio] 51.7 kg/m2 51.7 k g/m2 [facility] ([facility]) Oxygen saturation in Arterial blood by Pulse oximetry --post exerci se 97 % 97 % [facility] ([facility]) RM Air Body weight 360.50 [lb_av] 360.50 [lb_av] [facility] ([facility]) Body height 70 [in_i] 70 [in_i] [facility] ([facility]) 5'10" Body temperature 98.2 [degF] 98.2 [degF] [facility] ([facility]) Heart rate 97 /min 97 /min [facility] ([facility]) Diastolic blood pressure 98 mm[Hg] 98 mm[Hg] [facility] ([facility]) RT Arm Systolic blood pressure 150 mm[Hg] 150 mm[Hg] M ZEUS ([facility]) RT Arm
[2020-04-20] MEDS ORDERED: TORS20TA2 PO (08:44)
--- OUTSIDE RECORDS SUMMARY | 2020-04-20 09:25 | CCD ---
Author Author [facility] Organization [facility] Address Unknown Phone Unavailable Care Team Providers Care Timber Management Technician Name Role Phone Ger, Susan PURCHASING DEPARTMENT CLERK Unavailable Unavailable Ger, Susan PURCHASING DEPARTMENT CLERK Unavailable Unavailable Ger, Susan PURCHASING DEPARTMENT CLERK Unavailable Unavailable Ger, Susan PURCHASING DEPARTMENT CLERK Unavailable Unavailable Ger, Susan PURCHASING DEPARTMENT CLERK Unavailable Unavailable Ger, Susan PURCHASING DEPARTMENT CLERK Unavailable Unavailable Ger, Susan PURCHASING DEPARTMENT CLERK Unavailable Unavailable Ger, Susan PURCHASING DEPARTMENT CLERK Unavailable Unavailable Ger, Susan PURCHASING DEPARTMENT CLERK Unavailable Unavailable Ger, Susan PURCHASING DEPARTMENT CLERK Unavailable Unavailable Ger, Susan PURCHASING DEPARTMENT CLERK Unavailable Unavailable Ger, Susan PURCHASING DEPARTMENT CLERK Unavailable Unavailable Ger, Susan PURCHASING DEPARTMENT CLERK Unavailable Unavailable Ger, Susan PURCHASING DEPARTMENT CLERK Unavailable Unavailable Ger, Susan PURCHASING DEPARTMENT CLERK Unavailable Unavailable Ger, Susan PURCHASING DEPARTMENT CLERK Unavailable Unavailable Ger, Susan PURCHASING DEPARTMENT CLERK Unavailable Unavailable Ger, Susan PURCHASING DEPARTMENT CLERK Unavailable Unavailable Ger, Susan PURCHASING DEPARTMENT CLERK Unavailable Unavailable Ger, Susan PURCHASING DEPARTMENT CLERK Unavailable Unavailable Ger, Susan PURCHASING DEPARTMENT CLERK Unavailable Unavailable Ger, Susan PURCHASING DEPARTMENT CLERK Unavailable Unavailable Ger, Susan PURCHASING DEPARTMENT CLERK Unavailable Unavailable Ger, Susan PURCHASING DEPARTMENT CLERK Unavailable Unavailable Ger, Susan PURCHASING DEPARTMENT CLERK Unavailable Unavailable Ger, Susan PURCHASING DEPARTMENT CLERK Unavailable Unavailable Ger, Susan PURCHASING DEPARTMENT CLERK Unavailable Unavailable Ant BAUER MD Unavailable Unavailable [...] is protected by Article 27-F of the [facility] Public Health law. If you continue you may have access to information: Regarding HIV / AIDS; Provided by facilities licensed or operated by the [facility] Office of Mental Health; or Provided by the [facility] Office for People With Developmental Disabilities. If such information is present, then the following [facility] mandated warning applies: This information has been [...] law may result in a fine or [place] health care facility sentence or both. A general authorization for the release of medical or other information is NOT sufficient authorization for further disc losure. Family History Family Member Name Family Member Gender Family Member Status Date o f Status Description Data Source(s) Unknown Male Problem [facility] ([facility] ) Unknown Female Problem [facility] ([facility]) Unknown Unknown Problem [facility] father Encounters Encounter Providers Location Date Indications Data Source(s ) Outpatient Attender: Sunitha Russell 10:00:00 AM EST [facility] ([facility] ) Outpatient Attender: Sunitha Russell 10:15:00 AM EDT [facility] ([facility] ) Outpatient Attender: LENNY BAUER MD 12/22/2019 11:39: [address] [facility] Outpatient Attender: LENNY BAUER MD 10/20/2019 12:00: 00 AM [facility] Outpatient Attender: Susan Russell 03:20:00 PM EDT [facility] ([facility] ) Outpatient Attender: Susan Russell 07:40:00 AM EST [facility] ([facility] ) Medications Medication Brand Name Start Date Product Form Dose Route Admi nistrative Instructions Pharmacy Instructions Status Indications Reaction Description Data Source(s) torsemide 20 MG Oral Tablet Torsemide 03/22/2020 12:00:00 AM EST ORAL active [facility] ([facility]) 300 mg 02/23/2020 12:00:00 AM EST capsule 20 TAKE ONE CAPSULE BY MOUTH TWICE A DAY FOR 10 DAYS TAKE ONE CAPSULE BY MOUTH TWICE A DAY FOR 10 DAYS SOLD : 02/23/2020 [facility] Bariatric Rollator/Extra Wide/400LB Capacity/Heavy Duty 09/08/2019 12:00:00 AM EDT active [facility] ([facility]) Amoxicillin 500 MG / Clavulanate 125 MG Oral Tablet [Augment in] Augmentin 07/27/2019 12:00:00 AM EDT ORAL completed [facility] ([facility]) 875-125 mg 06/05/2019 12:00:00 AM EST tablet 20 TAKE ONE TABLET BY MOUTH TWICE A DAY FOR 10 DAYS TAKE ONE TABLET BY MOUTH TWICE A DAY FOR 10 DAYS SOLD: 06/05/2019 [facility] Oseltamivir 75 MG Oral Capsule [Tamiflu] Tamiflu 06/03/2019 12:00: 00 AM EST completed [facility] ([facility]) Amoxicillin 500 MG / Clavulanate 125 MG Oral Tablet [Augment in] Augmentin 04/14/2019 12:00:00 AM EST completed [facility] ([facility]) Insurance Providers Payer name Policy type / Coverage type Policy ID Covered alliance party ID Covered alliance party's relationship to doe Policy Doe Plan Information [employer] [id number] SP U [id number] CIGNA/MVP/CONN GEN/PREFE O [id number] P [id number] A[employer] O [id number] P [id number] [employer] [id number] SP U [id number] [employer]CARE [id number] S U [id number] Workers Compensation Workers Compensation [id number] Self [id number] Aetna Commercial [id number] Family Dependent [id number] [employer] Commercial [id number] Self [id number] AETNA U [id number] Spouse [id number] AETNA U [id number] Self [id number] AETNA U [id number] Self [id number] [employer] [place] [id number] Workers Compensation Workers Compensation [id number] Self [id number] Workers Compensation Workers Compensation [id number] Self [id number] BS [place] [facility] Part B [id number] Family Depend ent [id number] Aetna (pr) Commercial [id number] Self [id number] AETNA [facility] [place] [id number] SP [id number] SELF PAY ONLY [id number] SP [id number] [employer] [facility] [place] [id number] [facility] [id number] Workers Compensation Workers Compensation [id number] Self [id number] Workers Compensation Workers Compensation [id number] Self [id number] [employer] Commercial [id number] Family Dependent [id number] Workers Compensation Workers Compensation [id number] Self [id number] Workers Compensation Workers Compensation [id number] Self [id number] Workers Compensation Workers Compensation [id number] Self [id number] [employer] [facility] [place] [id number] [facility] [id number] Workers Compensation Workers Compensation [id number] Self [id number] Workers Compensation Workers Compensation [id number] Self [id number] Aetna Ppo/Pos/Nap/MC Commercial [id number] Family Dependen t [id number] Workers Compensation Workers Compensation [id number] Self [id number] Workers Compensation Workers Compensation [id number] Self [id number] [employer] [place] [id number] HU2 [id number] Workers Compensation Workers Compensation [id number] Self [id number] Aetna Ppo/Pos/Nap/MC Commercial [id number] Family Dependen t [id number] [employer] [facility] [place] [id number] HU2 [id number] Aetna Ppo/Pos/Nap/MC Commercial [id number] Family Dependen t [id number] [employer] [facility] [place] [id number] HU2 [id number] Workers Compensation Workers Compensation [id number] Self [id number] Workers Compensation Workers Compensation [id number] Self [id number] [employer] [facility] [place] [id number] 2 [id number] Workers Compensation Workers Compensation [id number] Self [id number] Aetna Commercial [id number] Family Dependent [id number] Workers Compensation Workers Compensation Self [employer]na Commercial [id number] Family Dependent 9 [id number] [employer] [facility] [place] O [id number] P [id number] Workers Compensation Workers Compensation Self Workers Compensation Workers Compensation Self AETNA [id number] Spo [id number] Workers Compensation Workers Compensation Self Workers Compensation Workers Compensation Self [employer]na Ppo/Pos/Nap/MC Commercial Family Dependent Workers Compensation Workers Compensation Self Workers Compensation Workers Compensation Self AETNA (HMO/PPO/POS/GPPO - MANAGED CARE [id number] AETNA (HMO/PPO/POS/GPPO - MANAGED CARE [id number] 1 [id number] [facility] 010/510 [id number] [id number] Problems, Conditions, and Diagnoses Code Display Name Description Problem Type Effective Dates Data Source(s) I87.2 Venous insufficiency (chronic) (peripher al) VENOUS INSUFFICIENCY (CHRONIC) (PERIPHERAL) Diagnosis 12/22/2019 11:39:00 AM [facility] I83.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 Results ID Date Data Source [id number] 03/22/2020 12:00:00 AM EST [facility] Sunitha Munguia, Rnakilah Patient Name:WALE [id number] [facility] Date of : 1970 89 Date of Exam: 03/22/2020CARRIE Valente [id number]#: Fax: [phone] EXAM: HIP RIGHT UNILATERAL (COMPLETE) [...] rce(s) Supporting Document(s) ID Date Data Source [id number] 03/22/2020 12:00:00 AM EST [facility] Imaging Sunitha Munguia, Rnakilah Patient Name:WALE [id number] [facility] Date of : 1970 89 Date of Exam: 03/22/2020CARRIE Valente [id number]#: Fax: [phone] EXAM: HIP LEFT UNILATERAL (COMPLETE) X-RAYCLINICAL INFORMATION: Pain.Two views.There are no prior left hip xrays for comparison.There is gjww-dn-bokrbbdo asymmetric hip joint space narrowing withoutevidence of prominent marginal osteophytosis or buttressing. There is nofracture, dislocation, or subluxation.IMPRESSION:Chronic changes as described above.SARTHAK Mcclellan/Maritza you for referring WALE GARY to our office. Electronically Signed - JESSICA OSPINA DO 03/28/20 16:40 Name Value Range Interpretation Code Description Data Shelia rce(s) Supporting Document(s) ID Date Data Source [id number] 12/23/2019 11:07:00 AM EDT [facility] ([facility]) Name Value Range Interpretation Code Description Data Shelia rce(s) Supporting Document(s) Triglyceride [Mass/volume] in Serum or Plasma 164 mg/dL 30-150 [facility] ([facility]) Cholesterol [Mass/volume] in Serum or Plasma 237 mg/dL 131-200 [facility] ([facility]) Cholesterol in HDL [Mass/volume] in Serum or Plasma 59 mg/dL 35-60 [facility] ([facility]) Cholesterol in LDL [Mass/volume] in Serum or Plasma by calcu lation 145 CALC 50-159 [facility] ([facility]) ID Date Data Source [id number] 12/23/2019 11:07:00 AM EDT [facility] ([facility]) Name Value Range Interpretation Code Description Data Shelia rce(s) Supporting Document(s) Urea nitrogen [Mass/volume] in Serum or Plasma 23 mg/dL 7-18 [facility] ([facility]) Glucose [Mass/volume] in Serum or Plasma 107 mg/dL 74-99 [facility] ([facility]) 100-125 mg/dL PRE-DIABETES/FASTING >126 mg/dL DIABETES/FASTING Creatinine 0.9 mg/dL 0.6-1.3 [facility] ([facility]) Sodium [Moles/volume] in Serum or Plasma 138 meq/L 136-145 [facility] ([facility]) Potassium [Moles/volume] in Serum or Plasma 4.3 meq/L 3.5-5.1 [facility] ([facility]) Carbon dioxide, total [Moles/volume] in Serum or Plasma 26 meq/L 21 -32 [facility] ([facility]) Chloride [Moles/volume] in Serum or Plasma 101 meq/L 98-107 [facility] ([facility]) Calcium [Mass/volume] in Serum or Plasma 9.0 mg/dL 8.5-10.1 [facility] ([facility]) Total Bilirubin 0.6 mg/dL 0.2-1.0 [facility] ([facility]) Alkaline phosphatase isoenzyme [Units/volume] in Serum or Pl asma 66 mg/dL 46-116 [facility] ([facility]) Aspartate aminotransferase [Enzymatic activity/volume] in Serum or Plasma 33 U/L 15-37 [facility] ([facility] ) Alanine aminotransferase [Enzymatic activity/volume] in Seru m or Plasma 57 U/L 12-78 [facility] Albumin [Mass/volume] in Serum or Plasma 3.8 g/dL 3.4-5.0 [facility] ([facility]) A/G Ratio 0.88 CALC 1.00-1.90 [facility] Proteinase 3 Ab [Units/volume] in Serum 8.1 g/dL 6.4-8.2 [facility] [place] [facility] Glomerular filtration rate/1.73 sq M pre dicted among blacks [Volume Rate/Area] in Serum or Plasma by Creatinine-based formula (MDRD) Laboratory test result [facility] ([facility]) <content>CHRONIC KIDNEY DISEASE STAGING PER NKF</content>
<content></content>
<content>STAGE I & II GFR >= 60 NORMAL TO MILDLY DECREASED</content>
<content>STAGE III GFR 30-59 MODERATELY DECREASED</content>
<content>STAGE IV GFR 15-29 SEVERELY DECREASED</content>
<content>STAGE V GFR <15 VERY LITTLE GFR LEFT</content>
<content>ESRD GFR <15 ON STERILE TECH</content>
<content></content> Glomerular filtration rate/1.73 sq M pre dicted among non-blacks [Volume Rate/Area] in Serum or Plasma by Creatinine-based formula (MDRD) Laboratory test result [facility] ([facility] ) ID Date Data Source [id number] 12/23/2019 11:07:00 AM EDT [facility] Name Value Range Interpretation Code Description Data Shelia rce(s) Supporting Document(s) Leukocytes [#/volume] in Blood by Automated count 6.3 x10*3/UL 4.1-10 .9 [facility] ([facility]) Hemoglobin [Mass/volume] in Blood 13.7 g/dL 12.0-18.0 [facility] Erythrocytes [#/volume] in Blood by Automated count 4.72 x10*6/UL 4.2 0-6.30 [facility] ([facility] MCV 85.5 fL 80.0-97.0 [facility] ([place] [facility] Hematocrit [Volume Fraction] of Blood by Automated count 40.4 % 3 7.0-51.0 [facility] ([facility]) MCH 29.0 pg 26.0-32.0 [facility] ([place] [facility]) MCHC 34.0 g/dL 31.0-38.0 [facility] ([facility]) Platelets [#/volume] in Blood by Automated count 274 x10*3/UL 140-440 [facility] ([facility] Erythrocyte distribution width [Ratio] by Automated count 13.0 % 11.6-13.7 [facility] ([facility]) Mid % 7.8 % 1.7-9.3 [facility] ([place] [facility] MPV 8.2 FL 7.8-11.0 [facility] ([facility]) Lymph % 27.4 % 10.0-58.5 [facility] ([facility]) Lymph # 1.7 x10*3/UL 0.6-4.1 [facility] ([facility]) Neut % 64.8 % 37.0-92.0 [facility] ([place] [facility] Neut # 4.1 x10*3/UL 2.0-7.8 [facility] ([facility]) Mid # 0.5 x10*3/UL 0.1-0.6 [facility] ([facility]) ID Date Data Source [id number] 09/08/2019 03:44:00 PM EDT [facility] ([facility]) Name Value Range Interpretation Code Description Data Shelia rce(s) Supporting Document(s) Glucose [Mass/volume] in Serum or Plasma 127 mg/dL 74-99 [facility] ([facility]) 100-125 mg/dL PRE-DIABETES/FASTING >126 mg/dL DIABETES/FASTING Creatinine 1.1 mg/dL 0.6-1.3 [facility] ([facility]) Urea nitrogen [Mass/volume] in Serum or Plasma 15 mg/dL 7-18 [facility] ([facility]) Sodium [Moles/volume] in Serum or Plasma 143 meq/L 136-145 [facility] ([facility]) Potassium [Moles/volume] in Serum or Plasma 3.8 meq/L 3.5-5.1 [facility] ([facility]) Calcium [Mass/volume] in Serum or Plasma 8.7 mg/dL 8.5-10.1 [facility] [place] [facility] Chloride [Moles/volume] in Serum or Plasma 105 meq/L 98-107 [facility] [place] [facility] Carbon dioxide, total [Moles/volume] in Serum or Plasma 29 meq/L 21 -32 [facility] Glomerular filtration rate/1.73 sq M pre dicted among non-blacks [Volume Rate/Area] in Serum or Plasma by Creatinine-based formula (MDRD) 52 mL/min [facility] ([facility] Glomerular filtration rate/1.73 sq M pre dicted among blacks [Volume Rate/Area] in Serum or Plasma by Creatinine-based formula (MDRD) Laboratory test result [facility] ([facility]) <content>CHRONIC KIDNEY DISEASE STAGING PER NKF</content>
<content></content>
<content>STAGE I & II GFR >= 60 NORMAL TO MILDLY DECREASED</content>
<content>STAGE III GFR 30-59 MODERATELY DECREASED</content>
<content>STAGE IV GFR 15-29 SEVERELY DECREASED</content>
<content>STAGE V GFR <15 VERY LITTLE GFR LEFT</content>
<content>ESRD GFR <15 ON STERILE TECH</content>
<content></content> Procedure Vital Signs ID Date Data Source UNK Name Value Range Interpretation Code Description Data Source(s) Body mass index (BMI) [Ratio] 52.7 kg/m2 52.7 k g/m2 [facility] ([facility] Oxygen saturation in Arterial blood by Pulse oximetry 99 % 99 % [facility] Body weight 367.00 [lb_av] 367.00 [lb_av] [facility] Body height 70 [in_i] 70 [in_i] [facility] ([facility]) 5'10" Heart rate 75 /min 75 /min [facility] ([facility]) Diastolic blood pressure 100 mm[Hg] 100 mm[Hg] [facility] ([facility]) Systolic blood pressure 156 mm[Hg] 156 mm[Hg] [facility] ([facility]) Body mass index (BMI) [Ratio] 52.4 kg/m2 52.4 k g/m2 [facility] ([facility]) Oxygen saturation in Arterial blood by Pulse oximetry 98 % 98 % [facility] ([facility]) Body weight 365.00 [lb_av] 365.00 [lb_av] [facility] ([facility]) Body height 70 [in_i] 70 [in_i] [facility] ([facility]) 5'10" Heart rate 76 /min 76 /min [facility] ([facility]) Diastolic blood pressure 92 mm[Hg] 92 mm[Hg] [facility] ([facility]) Systolic blood pressure 132 mm[Hg] 132 mm[Hg] [facility] ([facility]) Body mass index (BMI) [Ratio] 53.7 kg/m2 53.7 k g/m2 [facility] ([facility]) Body weight 374.00 [lb_av] 374.00 [lb_av] [facility] Body height 70 [in_i] 70 [in_i] [facility] ([facility]) 5'10" Heart rate 78 /min 78 /min [facility] ([facility]) Diastolic blood pressure 84 mm[Hg] 84 mm[Hg] [facility] ([facility]) Systolic blood pressure 130 mm[Hg] 130 mm[Hg] [facility] ([facility]) Body mass index (BMI) [Ratio] 51.7 kg/m2 51.7 k g/m2 [facility] ([facility]) Oxygen saturation in Arterial blood by Pulse oximetry --post exerci se 97 % 97 % [facility] ([facility]) RM Air Body weight 360.50 [lb_av] 360.50 [lb_av] [facility] ([facility]) Body height 70 [in_i] 70 [in_i] [facility] ([facility]) 5'10" Body temperature 98.2 [degF] 98.2 [degF] [facility] ([facility]) Heart rate 97 /min 97 /min [facility] ([facility]) Diastolic blood pressure 98 mm[Hg] 98 mm[Hg] [facility] ([facility]) RT Arm Systolic blood pressure 150 mm[Hg] 150 mm[Hg] [facility] ([facility]) RT Arm
--- NOTE | 2020-04-20 09:44 | REP ---
INDICATION: non traumtic leg pain r/o dvt COMPARISON: None. TECHNIQUE: Hartley scale and color Doppler evaluation left lower extremity using linear high frequency and curved array transducers. FINDINGS: Examination is somewhat limited due to body habitus and associated technical factors. However, ultrasound examination of the left lower extremity deep venous structures from the common femoral vein to the popliteal vein demonstrates normal compressibility flow and wave patterns in response to respiration and augmentation. There is no evidence for deep venous thrombosis. IMPRESSION: No evidence for deep venous thrombosis. <Electronically signed by Clement Spann > 04/20/20 1129
[2020-04-20] MEDS ORDERED: predniSONE 20 MG TAB PO ONE (10:15)
[2020-04-20] MEDS ORDERED: PRED20TA PO (10:15)
[2020-04-20 10:30] VITALS: BP 152/83
== END 2020-04-20 10:34 | disposition home or self-care (01) ==
LOC: M ED 08:32
DX: M54.32 Sciatica, left side (principal); Z79.1 Long term (current) use of non-steroidal anti-inflammatories (NSAID); Z79.899 Other long term (current) drug therapy

== ENCOUNTER 2020-04-28 12:15 | Outpatient (RCR) | payer OTHER ==
[~2020-04-28 12:15] MED LIST changes: +LISI-538 PO; -LISI20TA33 PO; +PRED20TA PO; +TORS20TA2 PO
== END 2020-05-01 ==
LOC: M PT 12:15
PROVIDERS: ATTEND Nurse Practitioner Adult Health
DX: Z47.89 Encounter for other orthopedic aftercare (principal); M54.5 Low back pain

== ENCOUNTER → 2020-08-09 | Outpatient (REF) | payer OTHER ==
[~2020-08-09] MED LIST changes: -LISI-538 PO; +LISI20TA33 PO
[2020-08-09 17:27] LABS: RHEUMATOID FACTOR QUANT < 10.0 IU/ML (<15.0)
[2020-08-09 17:39] LABS: VITAMIN B12 LEVEL 293 PG/ML (247-911)
== END ==
LOC: M LAB REF 16:16
PROVIDERS: ATTEND Nurse Practitioner Adult Health
DX: K57.92 Diverticulitis of intestine, part unspecified, without perforation or abscess without bleeding (principal); Z11.59 Encounter for screening for other viral diseases; M15.9 Polyosteoarthritis, unspecified

== ENCOUNTER → 2024-10-10 | Outpatient (REF) | payer BC ==
[2024-10-10 17:35] LABS: APPEARANCE, URINE CLOUDY (CLEAR); BACTERIA, URINE AUTO 1+ (NEGATIVE); BILIRUBIN, URINE AUTO NEGATIVE (NEGATIVE); BLOOD, URINE BLOOD 3+ (NEGATIVE); GLUCOSE, URINE (UA) AUTO NEGATIVE (NEGATIVE); KETONE, URINE AUTO NEGATIVE (NEGATIVE); LEUKOCYTE ESTERASE, URINE AUTO 3+ (NEGATIVE); MUCUS, URINE SMALL (NEGATIVE); NITRITE, URINE AUTO NEGATIVE (NEGATIVE); PROTEIN, URINE AUTO 3+ mg/dL (NEGATIVE); RBC, URINE AUTO TNTC /HPF (0-3); SPECIFIC GRAVITY URINE AUTO 1.024 (1.002-1.035); SQUAMOUS EPITHELIAL CELL UR AU 7 /HPF (0-6); UROBILINOGEN, URINE AUTO 0.2 mg/dL (0.0-2.0); WBC, URINE AUTO TNTC /HPF (0-3)
== END ==
LOC: M LAB REF 16:54
PROVIDERS: ATTEND Physician Assistant Medical
DX: N39.0 Urinary tract infection, site not specified (principal)